=== PATIENT | male | born 1985 | race Caucasian/White ===

== ENCOUNTER → 2020-12-20 10:29 | Outpatient (BNVA) | payer OTHER, SELFPAY | PROVIDERS: Visit Provider Orthopaedic Surgery ==

== ENCOUNTER 2021-01-09 18:51 | Outpatient (REF) | payer OTHER, SELFPAY ==
--- NOTE | ~2021-01-09 | MR_ITS ---
EXAMINATION: MR KNEE WITHOUT CONTRAST, RIGHT CLINICAL INFORMATION: Right knee pain COMPARISON: None TECHNIQUE: MRI of the knee without contrast was performed using routine sequences on a high-field scanner. FINDINGS: MENISCI: Medial Meniscus: Prominent degeneration at the root of the posterior horn. There is a near full-thickness inner margin radial tear of the posterior horn. Inner margin fraying at the junction of the posterior horn and body. The meniscal body is diminutive, most likely postsurgical. Lateral Meniscus: Degeneration/fraying of the root of the posterior horn. LIGAMENTS: Cruciate: The ACL graft appears completely torn. The posterior cruciate ligament is thickened but appears intact. Collateral: Intact EXTENSOR MECHANISM: Intact. Postsurgical changes. ARTICULAR CARTILAGE/BONE: Patellofemoral Compartment: Small marginal osteophytes. Medial Compartment: Cartilage thinning and surface irregularity throughout the weightbearing aspect with a central osteophyte of the femoral condyle. There are prominent marginal osteophytes. Lateral Compartment: Cartilage signal heterogeneity with areas of mild surface irregularity of the weightbearing aspect with prominent marginal osteophytes. There is cartilage thinning of the posterior weightbearing femoral condyle. There is heterogeneous marrow of the femoral condyle most likely representing a chronic bone infarct. JOINT FLUID AND BURSAE: Trace joint effusion. There is a chondral body in the posterior joint recess and an ossified body posterior to the posterior horn of the medial meniscus. 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 Near full-thickness inner margin radial tear of the posterior horn medial meniscus. Marked degenerative signal at the posterior horn and presumed postsurgical change of the diminutive meniscal body. Moderate tricompartmental osteoarthritis.
== END 2021-01-09 18:52 | disposition home or self-care (01) ==
LOC: HO.MRI 18:51
PROVIDERS: PCP Internal Medicine; Visit Provider Orthopaedic Surgery
DX: S83.241A Other tear of medial meniscus, current injury, right knee, initial encounter (principal)
CPT/HCPCS: 73721

== ENCOUNTER 2021-01-16 12:48 | Outpatient (REF) | payer OTHER, SELFPAY ==
--- NOTE | ~2021-01-16 | XR_ITS ---
EXAMINATION: XR KNEE, BILATERAL AP STANDING XR KNEE, RIGHT 2 VIEWS CLINICAL INFORMATION: Pain in right knee. COMPARISON: None. TECHNIQUE: Standing AP view of both knees and lateral and sunrise views of the right knee. FINDINGS: LEFT KNEE: Enthesopathic spurring is likely present at the patellar tendon insertion. The bones, joints, and soft tissues are otherwise normal on the single AP view. RIGHT KNEE: Tricompartmental osteoarthritis is most pronounced in the medial compartment, characterized by nonuniform joint space narrowing, articular cortical irregularity, and marginal osteophytes. A central osteophyte is present at the medial femoral condyle weightbearing surface. There is a small 4 mm ossific density in the posterior aspect of the medial compartment, possibly a meniscal ossicle or loose body. No joint effusion. Patellar enthesopathic spurs are present at the patellar tendon origin on the patella and patellar tendon insertion on the tibial tuberosity. XR/XR knee RT 2V IMPRESSION: [id number] tricompartmental osteoarthritis in the right knee, most pronounced in the medial compartment.
--- NOTE | ~2021-01-16 | XR_ITS ---
EXAMINATION: XR KNEE, BILATERAL AP STANDING XR KNEE, RIGHT 2 VIEWS CLINICAL INFORMATION: Pain in right knee. COMPARISON: None. TECHNIQUE: Standing AP view of both knees and lateral and sunrise views of the right knee. FINDINGS: LEFT KNEE: Enthesopathic spurring is likely present at the patellar tendon insertion. The bones, joints, and soft tissues are otherwise normal on the single AP view. RIGHT KNEE: Tricompartmental osteoarthritis is most pronounced in the medial compartment, characterized by nonuniform joint space narrowing, articular cortical irregularity, and marginal osteophytes. A central osteophyte is present at the medial femoral condyle weightbearing surface. There is a small 4 mm ossific density in the posterior aspect of the medial compartment, possibly a meniscal ossicle or loose body. No joint effusion. Patellar enthesopathic spurs are present at the patellar tendon origin on the patella and patellar tendon insertion on the tibial tuberosity. XR/XR knee standing BI IMPRESSION: [id number] tricompartmental osteoarthritis in the right knee, most pronounced in the medial compartment.
== END 2021-01-16 12:49 | disposition home or self-care (01) ==
LOC: HO.HOSX 12:48
PROVIDERS: PCP Internal Medicine; Visit Provider Orthopaedic Surgery
DX: M17.11 Unilateral primary osteoarthritis, right knee (principal); M25.562 Pain in left knee
CPT/HCPCS: 20610; 73560; 73565; J1040

== ENCOUNTER 2021-03-08 10:00 | Outpatient (RCR) | payer OTHER, SELFPAY ==
--- NOTE | 2021-01-24 15:24 | MHC.PT.EP ---
[facility] [place] Office [place] Office [place] Office [address] Elysia Ambriz [address] [phone] F: [phone] F: [phone] F: [phone] F: [phone] Physical Therapy Plan of Care Date of Evaluation: 01/24/21 Date of Surgery: N/A Diagnosis: primary unilateral osteoarthritis of right knee Assessment: pt does present w/ MRI (+) for chronic ACL tear. Upon ligamentous testing his injured knee presents w/ minimal increased laxity compared to his contralateral LE. Overall, his lower extremity strength is good to excellent. With a proper strengthening, stability, and plyometric program he should be able to return to running as he is not limited by pain at this time. pt presents to physical therapy with pain, decreased range of motion, decreased strength, and impaired functional mobility. pt is a good candidate for skilled PT due to age, potential remediation of impairments, typical disease/condition progression and prognosis, comorbidities, and motivation. pt would benefit from tailored strengthening and stretching exercise program, functional training, neuromuscular re-education, and modalities as needed for pain. Frequency and Duration: The patient will be seen 1x/wk for 3 wks Short Term Goals: pt will be I w/ HEP to promote self-management of condition. [place] [employer] Goals: pt will report <1/10 R knee pain w/ jogging on even ground for 10 minutes to promote return to running. Treatment Plan: Modalities to reduce pain, spasms and effusion. Manual therapy to restore motion and function. Therapeutic exercise to improve strength and flexibility. Neuromuscular re-education for posture and balance. Therapeutic activities to return to functional activities of daily living. Electronically signed by: Bee Emmanuel PT, DPT Please sign and return to therapist. Thank you for your referral.
--- NOTE | 2021-04-06 16:06 | MHC.PT.DC ---
[facility] [place] Office [place] Office [place] Office [address] Elysia Ambriz [address] [facility] [phone] F: [phone] F: [phone] F: [phone] F: [phone] Physical Therapy Discharge Report Diagnosis: primary unilateral osteoarthritis of right knee Date of Surgery: N/A Date of Evaluation: 01/24/21 Date of Discharge: 04/06/21 Treatments to Date: 4 Cancellations to Date: 2 No Shows to Date: 0 Discharge Status: Visit Non-compliance Discharge Summary: The patient is independent with his home exercise program. He has not followed up with any further appointments in nearly a month. He is discharged from this physical therapy plan of care at this time. Electronically signed by: Bee Emmanuel PT, DPT Please sign and return to therapist. Thank you for your referral.
== END 2021-04-06 16:07 | disposition other institution (70) ==
LOC: HO.PT 10:00
PROVIDERS: PCP Internal Medicine; Visit Provider Orthopaedic Surgery
DX: M17.11 Unilateral primary osteoarthritis, right knee (principal)
CPT/HCPCS: 97110; 97161; 97530